=== PATIENT | male | born 1950 | race Caucasian/White ===

== ENCOUNTER 2024-12-19 17:54 | Emergency (ER) | payer OTHER, MEDICARE ==
[2024-12-19 18:24] LABS: BASOPHILS ABSOLUTE AUTO 0.04 K/uL (0.00-0.10); BASOPHILS PERCENT AUTO 0.4 % (0.1-1.3); EOSINOPHILS PERCENT AUTO 0.2 % (0.0-5.4); HEMOGLOBIN 13.9 g/dL (12.9-16.9); IMMATURE GRAN ABSOLUTE AUTO 0.05 K/uL (0.00-0.23); IMMATURE GRAN PERCENT AUTO 0.5 % (0.0-0.7); LYMPHOCYTES ABSOLUTE AUTO 0.92 K/uL (0.8-3.3); LYMPHOCYTES PERCENT AUTO 9.9 % (11.4-47.7); MEAN CORPUSCULAR HEMOGLOBIN 27.5 pg (31.6-35.5); MEAN CORPUSCULAR HGB CONC 32.3 g/dL (31.6-35.5); MONOCYTES ABSOLUTE AUTO 0.88 K/uL (0.20-0.90); MONOCYTES PERCENT AUTO 9.5 % (3.3-12.6); NEUTROPHILS PERCENT AUTO 79.5 % (40.0-78.1); PLATELET COUNT,PLT 244 K/uL (130-375); RED BLOOD CELL COUNT 5.06 M/uL (4.14-5.76); WHITE BLOOD CELL COUNT,WBC 9.3 K/uL (3.2-11.0)
[2024-12-19 18:24] LABS: BASE EXCESS ARTERIAL -2.9 mm/L; BICARBONATE,ARTERIAL 21.7 mmol/L (22.0-26.0); CARBOXYHEMOGLOBIN 1.5 % (0.0-1.6); METHEMOGLOBIN 0.7 %; O2 SATURATION ARTERIAL 90.9 % (95.0-98.0); OXYHEMOGLOBIN 88.9 %; PCO2 ARTERIAL 39.2 mmHg (35.0-42.0); TOTAL HEMOGLOBIN 14.3 g/dL (13.5-18.0)
[2024-12-19 18:26] LABS: PO2 ARTERIAL 61.4 mmHg (75.0-100.0)
[2024-12-19 18:29] LABS: EOSINOPHILS ABSOLUTE AUTO 0.02 K/uL (0.00-0.40)
[2024-12-19 18:57] LABS: A/G RATIO 0.9 (1.2-2.2); ALANINE AMINOTRANSFERASE,ALT 970 U/L (12-78); ALBUMIN 3.2 g/dL (3.4-5.0); ALKALINE PHOSPHATASE 101 U/L (46-116); ASPARTATE AMNIOTRANSFERASE,AST 1156 U/L (15-37); BLOOD UREA NITROGEN,BUN 59 mg/dL (7-18); CALCIUM 9.4 mg/dL (8.5-10.1); CARBON DIOXIDE,CO2 27 mmol/L (21-32); CHLORIDE,CL 97 mmol/L (100-108); CREATININE 1.9 mg/dL (0.8-1.3); EST CRCL DRUG DOSING (CG) 35.75 mL/min; ESTIMATED GFR 37 mL/min (>60); GLUCOSE RANDOM 102 mg/dL (74-106); PROTEIN TOTAL,TP 6.8 g/dL (6.4-8.2); SODIUM,NA 137 mmol/L (140-148)
[2024-12-19 18:58] LABS: TROPONIN I HIGH SENSITIVITY 186.9 pg/mL (<=60.3)
[2024-12-19] MEDS: Aspirin 81 MG Tab.Chew PO ONE (19:15)
[2024-12-19] MEDS: Sodium Chloride 0.9% 1,000 ML IV ONE (22:21)
[2024-12-21 18:37] LABS: HEPATITIS B SURFACE ANTIBODY <3.10 IU/L
[2024-12-21 19:43] LABS: HEPATITIS A ANTIBODY, IGM Negative (Negative); HEPATITIS B CORE ANTIBODY, IGM Negative (Negative); HEPATITIS B SURFACE ANTIGEN Negative (Negative); HEPATITIS C AB CIA INTERP Negative (Negative); HEPATITIS C ANTIBODY CIA INDEX 0.17 IV
[2024-12-21 23:12] LABS: HEPATITIS BE ANTIGEN Negative (Negative)
== END 2024-12-19 21:55 | disposition left against medical advice (07) ==
LOC: JP.ED 17:54
DX: K76.0 Fatty (change of) liver, not elsewhere classified (principal); R18.8 Other ascites; Z79.82 Long term (current) use of aspirin; Z79.899 Other long term (current) drug therapy
CPT/HCPCS: 36415; 36600; 70450; 71045; 72125; 74176; 76377; 80053; 80074; 82803; 83605; 84484; 85025; 86706; 87350; 93005; 99285; A9270